=== PATIENT | female | born 2000 | race Caucasian/White ===

== ENCOUNTER 2021-10-27 03:57 | Observation (INO) ==
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
[2021-10-27] MEDS ORDERED: SODIUM CHLORIDE 0.9% 1000ML 1,000 ML IV ONE (04:41)
[2021-10-27 05:08] LABS: Amphetamines+Metham, Urine Neg (Neg); Barbiturates, Urine Neg (Neg); Benzodiazepine, Urine Neg (Neg); Cocaine, Urine Neg (Neg); MDMA (Ecstacy), Urine Neg (Neg); Methadone, Urine Neg (Neg); Opiate, Urine Neg (Neg); Phencyclidine, Urine Neg (Neg)
[2021-10-27 05:15] LABS: Alanine Aminotransferase 13 U/L (7-52); Albumin Globulin Ratio 1.7 (0.9-2); Alkaline Phosphatase 84 U/L (34-104); Anion Gap 9 (3-11); Aspartate Aminotransferase 22 U/L (13-39); BUN Creatinine Ratio 22.7 (10-20); Bilirubin,Total 0.3 mg/dl (0.2-1.0); Blood Urea Nitrogen 15 mg/dl (6-23); Calcium 9.1 mg/dl (8.5-10.1); Carbon Dioxide 26 mmol/L (21-32); Chloride 99 mmol/L (98-107); Creatinine Clr Calc Pharmacy 141.4 ml/min; Est GFR (African American) 145.3 ml/min; Est GFR (Non-African American) 125.4 ml/min; Globulin 2.9 gm/dl (2.5-4.0); Glucose 108 mg/dl (70-99(Fasting)); Magnesium 2.1 mg/dl (1.7-2.4); Potassium 3.5 mmol/L (3.5-5.1); Sodium 134 mmol/L (136-145); Total Protein 7.9 gm/dl (6.0-8.3)
[2021-10-27 05:38] LABS: Troponin I < 0.03 ng/ml (0-0.04)
[2021-10-27] MEDS ORDERED: POTASSIUM CHLORIDE / WTR 10 MEQ/100 ML PLCT IV ONE (06:47)
[2021-10-27] MEDS ORDERED: CALCIUM CARBONATE 500 MG CHEWABLE TAB PO PRN (06:51)
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
[2021-10-27] MEDS ORDERED: FAMOTIDINE 20 MG in SYRINGE 3 ML IV SCH (07:15)
[2021-10-27 07:25] LABS: Basophils # (auto) 0.05 K/uL (0-0.2); Basophils % (auto) 0.6 %; Eosinophils # (auto) 0.09 K/uL (0-0.5); Eosinophils % (auto) 1.1 %; Hematocrit (blood only) 41.3 % (37-47); Hemoglobin 13.6 g/dL (12.0-16.0); Immature Granulocytes # (auto) 0.02 K/uL (0.00-0.02); Immature Granulocytes % (auto) 0.2 %; Lymphocytes # (auto) 2.15 K/uL (1.2-3.4); Lymphocytes % (auto) 26.5 %; Mean Corpuscular Hemoglobin 30.4 pg (25-34); Mean Corpuscular Hgb Conc 32.9 g/dL (32-36); Mean Corpuscular Volume 92.4 fL (80-100); Mean Platelet Volume 9.5 fL (7.4-10.4); Monocytes % (auto) 4.9 %; Neutrophils # (auto) 5.41 K/uL (1.4-6.5); Neutrophils % (auto) 66.7 %; Platelet Count 354 K/uL (130-400); RDW Coefficient of Variation 12.7 % (11.5-14.5); Red Blood Count 4.47 M/uL (4.2-5.4); White Blood Count 8.12 K/uL (4.8-10.8)
[2021-10-27] MEDS ORDERED: METOPROLOL TARTRATE 1 MG/ML VIAL IV PRN (08:00)
[2021-10-27 08:05] LABS: Thyroid Stimulating Hormone 1.172 uIu/ml (0.300-4.500)
[2021-10-27 08:07] LABS: T4 Free Thyroxine 1.04 ng/dl (0.61-1.60)
[2021-10-27] MEDS ORDERED: ACETAMINOPHEN 325 MG TAB PO PRN (09:21)
[2021-10-27] MEDS ORDERED: ONDANSETRON INJ 2 MG/ML 2 ML VIAL IV PRN (09:21)
[2021-10-27] MEDS ORDERED: NSS + 20MEQ KCL 20 MEQ/1,000 ML BAG IV SCH (10:00)
--- NOTE | 2021-10-27 10:14 | XCELERA ---
[id number]
--- NOTE | 2021-10-27 10:35 | Electrocardiogram Report ---
Test Reason : Blood Pressure : / mmHG Vent. Rate : 094 BPM Atrial Rate : 101 BPM P-R Int : 000 ms QRS Dur : 106 ms QT Int : 362 ms P-R-T Axes : 000 018 030 degrees QTc Int : 452 ms Normal sinus rhythm with frequent Premature atrial complexes Abnormal ECG When compared with ECG of 27-MAY-2021 17:51, Premature atrial complexes now present Confirmed by Wilber Lopez ([id number]) on 10/27/2021 10:35:04 AM Referred By: Confirmed By:Wilber Lopez
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
--- NOTE | 2021-10-28 01:54 | Billing Data ---
Date of Service October 28, 2021 Coding Level of Care Code INT OBSERVATION CARE 70M LVL 3
== END 2021-10-27 20:17 | disposition home or self-care (01) ==
LOC: ED 03:57 → EDINP 03:57 → SUATTDRO 06:26